=== PATIENT | male | born 1990 | race Caucasian/White ===

== ENCOUNTER 2017-02-05 08:43 | Emergency (ER) | payer OTHER ==
[2017-02-05 08:45] VITALS: BP 163/91; PULSE 42; RESP 15; TEMP 97.7; O2SAT 100
[2017-02-05] MEDS ORDERED: ONDANSETRON HCL 4 MG/2 ML VIAL IV PUSH ONE (08:45)
[2017-02-05] MEDS ORDERED: KETOROLAC TROMETHAMINE 30 MG/ML (IVP) VIAL IV PUSH ONE (08:45)
[2017-02-05] MEDS ORDERED: SODIUM CHLOR 0.9% 1000 ML INJ 1,000 ML IV ONE ×2 (08:45)
--- NOTE | 2017-02-05 08:56 | PD ---
HPI Chief Complaint: Abdominal Pain Time Seen by Provider: 08:45 Travel History International Travel<30 days: No Contact w/Intl Traveler<30days: No Traveled to known affect area: No History of Present Illness HPI RT FLANK PAIN , NAUSEA, ONSET 2HRS AGO, DECREASED URINATION PER PATIENT... PFSH Past Surgical History Abdominal Surgery: Yes (HERNIA X'S 2) Other Surgery: Yes (HAND SURGERY FOR INFECTION 01/2017) Social History Alcohol Use: No Tobacco Use: Yes Allergies-Medications (Allergen,Severity, Reaction): Coded Allergies: No Known Allergies (Unverified , 02/05/17) Reported Meds & Prescriptions Reported Meds & Active Scripts Active No Active Prescriptions or Reported Medications Review of Systems Except as stated in HPI: all other systems reviewed are Neg Genitourinary: Positive: Flank Pain Physical Exam Narrative GENERAL: SKIN: Warm and dry. HEAD: Atraumatic. Normocephalic. EYES: Pupils equal and round. No scleral icterus. No injection or drainage. ENT: No nasal bleeding or discharge. Mucous membranes pink and moist. NECK: Trachea midline. No JVD. CARDIOVASCULAR: Regular rate and rhythm. RESPIRATORY: No accessory muscle use. Clear to auscultation. Breath sounds equal bilaterally. GASTROINTESTINAL: Abdomen soft, non-tender, nondistended. Hepatic and splenic margins not palpable. MUSCULOSKELETAL: Extremities without clubbing, cyanosis, or edema. No obvious deformities. NEUROLOGICAL: Awake and alert. No obvious cranial nerve deficits. Motor grossly within normal limits. Five out of 5 muscle strength in the arms and legs. Normal speech. PSYCHIATRIC: Appropriate mood and affect; insight and judgment normal. Data Data Last Documented VS Vital Signs Date Time Temp Pulse Resp B/P Pulse Ox O2 Delivery O2 Flow Rate FiO2 02/05/17 08:45 97.7 42 15 163/91 100 Orders Electrocardiogram (02/05/17 08:45) Complete Blood Count With Diff (02/05/17 08:45) Comprehensive Metabolic Panel (02/05/17 08:45) Lipase (02/05/17 08:45) Ct Abd/Pel W/O Iv Contrast (02/05/17 08:45) Sodium Chlor 0.9% 1000 Ml Inj (Ns 1000 M (02/05/17 08:45) Sodium Chlor 0.9% 1000 Ml Inj (Ns 1000 M (02/05/17 08:45) Ketorolac Inj (Toradol Inj) (02/05/17 08:45) Ondansetron Inj (Zofran Inj) (02/05/17 08:45) Labs Laboratory Tests Test 02/05/17 09:20 White Blood Count 14.2 TH/MM3 Red Blood Count 5.40 MIL/MM3 Hemoglobin 16.3 GM/DL Hematocrit 50.8 % Mean Corpuscular Volume 94.0 FL Mean Corpuscular Hemoglobin 30.1 PG Mean Corpuscular Hemoglobin 32.1 % Concent Red Cell Distribution Width 13.1 % Platelet Count 220 TH/MM3 Mean Platelet Volume 8.8 FL Neutrophils (%) (Auto) 86.6 % Lymphocytes (%) (Auto) 8.1 % Monocytes (%) (Auto) 4.0 % Eosinophils (%) (Auto) 0.3 % Basophils (%) (Auto) 1.0 % Neutrophils # (Auto) 12.3 TH/MM3 Lymphocytes # (Auto) 1.2 TH/MM3 Monocytes # (Auto) 0.6 TH/MM3 Eosinophils # (Auto) 0.0 TH/MM3 Basophils # (Auto) 0.1 TH/MM3 CBC Comment AUTO DIFF MDM Medical Decision Making Medical Screen Exam Complete: Yes Emergency Medical Condition: Yes Medical Record Reviewed: Yes Differential Diagnosis KIDNEY STONES, APPY, UTI, DEHYDRATION, GASTROENTERITIS Narrative Course PATIENT IS NOW DOING WELL AFTER HYDRATION AND TORADOL...CT FOUND KIDNEY STONE Diagnosis Primary Impression: Ureterolithiasis Patient Instructions: General Instructions, Ureteral Stones (ED) Departure Forms: Tests/Procedures Med/Other Pt SpecificInfo: Prescription(s) given Scripts Tamsulosin (Flomax)0.4 Mg Cap0.4 Mg PO HS #5 CAP Ref 0 Prov:Guy Rachel MD 02/05/17 Hydrocodone-Acetaminophen (Lortab)10-325 Mg Tab1 Tab PO Q6H PRN (PAIN) #15 TAB Ref 0 Prov:Guy Rachel MD 02/05/17 Disposition: 01 DISCHARGE HOME Condition: Stable Guy Rachel MD Feb 05, 2017 08:56
--- NOTE | 2017-02-05 09:29 | RADHPO ---
EXAM DATE/TIME: 02/05/2017 09:00 [facility] COMPARISON: No previous studies available for comparison. INDICATIONS : Right flank pain. ORAL CONTRAST: No oral contrast ingested. RADIATION DOSE: 8.47 CTDIvol (mGy) MEDICAL HISTORY : None SURGICAL HISTORY : Hernia repair. ENCOUNTER: Initial ACUITY: 1 day PAIN SCALE: 10/10 LOCATION: Right flank TECHNIQUE: Volumetric scanning of the abdomen and pelvis was performed. Using automated exposure control and ad justment of the mA and/or kV according to patient size, radiation dose was kept as low as reasonably achievable to obtain optimal diagnostic quality images. FINDINGS: Lung bases are clear. The liver, spleen, pancreas, and adrenals are unremarkable. There are no renal calculi identified. There is mild prominence to the right ureter with a dilated ureter extending down to the right ureter ovesical junction where there is a 2 mm stone present. Stone is triangular shaped and pointed in the correct direction. This probably will pass. Prostate and seminal vesicles are unremarkable. CONCLUSION: Partially obstructing stone right ureterovesical junction measuring approximately 2 mm. Bairon Delgado MD FACR on February 05, 2017 at 9:18 Board Certified Radiologist. This report was verified electronically.
[2017-02-05 09:41] LABS: AUTOMATED NEUTROPHIL # 12.3 TH/MM3 (1.8-7.7); BASOPHIL # 0.1 TH/MM3 (0-0.2); EOSINOPHIL % 0.3 % (0.0-4.0); HEMATOCRIT 50.8 % (39.0-51.0); HEMO FLAGS AUTO DIFF; LYMPH % 8.1 % (9.0-44.0); LYMPHOCYTE # 1.2 TH/MM3 (1.0-4.8); MEAN CORPUSCULAR HEMOGLOBIN 30.1 PG (27.0-34.0); MEAN CORPUSCULAR HGB CONC 32.1 % (32.0-36.0); NEUT % 86.6 % (16.0-70.0); PLATELET COUNT 220 TH/MM3 (150-450); RED CELL DISTRIBUTION WIDTH 13.1 % (11.6-17.2); WHITE BLOOD COUNT 14.2 TH/MM3 (4.0-11.0)
[2017-02-05] MEDS ORDERED: HYDR-3535 PO (09:44)
[2017-02-05] MEDS ORDERED: TAMS5CAP PO (09:44)
[2017-02-05 09:57] LABS: BICARBONATE 28.9 MEQ/L (21.0-32.0)
[2017-02-05 09:58] LABS: SCAN/DIFF AUTO DIFF CONFIRMED
[2017-02-05 10:00] LABS: ALT (GPT) 97 U/L (12-78); AST (GOT) 45 U/L (15-37); GLOMERULAR FILTRATION RATE 100 ML/MIN (>89)
[2017-02-05 10:01] LABS: TOTAL BILIRUBIN ADULT 0.7 MG/DL (0.2-1.0)
[2017-02-05 10:02] LABS: ALKALINE PHOSPHATASE 108 U/L (45-117); BLOOD UREA NITROGEN 12 MG/DL (7-18)
[2017-02-05 10:03] LABS: ANION GAP 10 MEQ/L (5-15); CHLORIDE 104 MEQ/L (98-107); POTASSIUM 3.9 MEQ/L (3.5-5.1); SODIUM (NA) 143 MEQ/L (136-145)
[2017-02-05 11:55] VITALS: BP 158/89
[2017-02-05] MEDS ORDERED: ACETAMINOPHEN 325 MG TAB PO ONE (12:00)
--- NOTE | 2017-02-06 13:38 | EKG ---
Date Performed: 02/05/2017 Time Performed: 08:45:17 PTAGE: 26 years EKG: SINUS BRADYCARDIA INCOMPLETE RIGHT BUNDLE BRANCH BLOCK ABNORMAL RHYTHM ECG NO PREVIOUS TRACING DOCTOR: Forrest Cabrera Interpretating Date/Time 02/06/2017 13:36:32
== END 2017-02-05 11:59 | disposition home or self-care (01) ==
LOC: PHED 08:43
DX: N20.1 Calculus of ureter (principal); I45.10 Unspecified right bundle-branch block
CPT/HCPCS: 74176; 80053; 83690; 85025; 93005; 96374; 96375; 99285; J1885; J2405; J7030